=== PATIENT | female | born 1985 | race Hispanic/Latino ===

== ENCOUNTER 2024-06-15 16:44 | Emergency (ER) | payer BC ==
[~2024-06-15] VITALS: Ht 154.9 cm; Wt 97.5 kg
--- NOTE | 2024-06-15 16:55 | NUR ---
PENDING TEST RESULTS FOR CT EXAM.
[2024-06-15 17:25] LABS: BASOPHILS # (AUTO) 0.02 K/uL (0.00-0.20); BASOPHILS % (AUTO) 0.2 % (0.0-5.0); EOSINOPHILS # (AUTO) 0.02 K/uL (0.00-0.70); EOSINOPHILS % (AUTO) 0.2 % (0.0-8.0); HEMATOCRIT 32.9 % (36-48); IMMATURE GRANULOCYTE ABSOLUTE 0.05 K/uL (0-1); LYMPHOCYTES # (AUTO) 2.7 K/uL (1.0-4.8); LYMPHOCYTES % (AUTO) 24.9 % (21.0-51.0); MEAN CORPUSCULAR HEMOGLOBIN 25.2 pg (27.0-33.0); MEAN CORPUSCULAR HGB CONC 31.6 g/dL (32.0-36.0); MEAN CORPUSCULAR VOLUME 79.7 fL (79-99); MONOCYTES # (AUTO) 0.6 K/uL (0.1-1.0); MONOCYTES % (AUTO) 5.3 % (3.0-13.0); NEUTROPHILS # (AUTO) 7.4 K/uL (1.8-7.7); NEUTROPHILS % (AUTO) 68.9 % (40.0-77.0); PLATELET COUNT (AUTO) 269 K/uL (130-400); RED BLOOD CELL COUNT(AUTO) 4.13 MIL/uL (4.00-5.50); RED CELL DISTRIBUTION WIDTH 15.3 % (11.0-15.5); WHITE BLOOD COUNT (AUTO) 10.8 K/uL (4.8-10.8)
[2024-06-15] MEDS: ketOROlac 15MG/ML VIAL (15MG/ML) IV ONE (17:27)
[2024-06-15 17:33] LABS: CREATININE 0.8 mg/dL (0.5-1.0); POTASSIUM 3.5 mmol/L (3.5-5.1)
[2024-06-15 17:39] LABS: ALBUMIN 3.5 g/dL (3.5-5.0); BILIRUBIN,DIRECT 0.1 mg/dL (0.0-0.3); BILIRUBIN,TOTAL 0.3 mg/dL (0.2-1.0); TOTAL PROTEIN, SERUM 7.1 g/dL (6.0-8.3)
--- NOTE | 2024-06-15 17:52 | ERN ---
General Chief Complaint: Back Pain or Injury Stated Complaint: LEFT SIDE PAIN Time Seen by MD: 16:46 Time Seen by Midlevel: 16:46 Source: patient History of Present Illness Initial Comments Patient is a 39-year-old female with no significant past medical history presenting to the emergency department with sudden onset of left flank pain that radiates to the left groin. No other symptoms reported at this time. Allergies: Coded Allergies: No Known Allergies (Unverified Allergy, Unknown, 06/15/24) Home Meds Active Scripts Ketorolac Tromethamine (Ketorolac Tromethamine) 10 Mg Tablet, 1 TAB PO TID for pain for 5 Days, #15 TAB 0 Refills Prov:KARIN BACA 06/15/24 Tamsulosin HCl (Flomax) 0.4 Mg Cap.er.24h, 1 CAP PO DAILY for 7 Days, #7 CAP 0 Refills Prov:KARIN BACA 06/15/24 Past Medical History Past Medical History: Hypothyroid Past Surgical History: Tonsillectomy, Female( History) LMP: May 18, 2024 ROS Dictation CONSTITUTIONAL: Negative except for HPI HEAD/FACE: Negative except for HPI EENT: Negative except for HPI RESPIRATORY: Negative except for HPI GASTROINTESTINAL/ABDOMINAL: Negative except for HPI GENITOURINARY: Negative except for HPI MUSCULOSKELETAL: Negative except for HPI INTEGUMENTARY: Negative except for HPI NEUROLOGICAL/PSYCH: Negative except for HPI HEMATOLOGIC/LYMPHATIC: Negative except for HPI All Systems Negative, Except as noted above. 13 point review of systems assessed and all negative except for above. Physical Exam Physical Exam Dictation Vital Signs reviewed General Appearance: Alert, oriented x 3, no acute distress, well developed, nourished. Head and Face: non-traumatic. Eyes: PERRL, pink conjunctivas, eyelid no trauma, anterior chamber with arcus senilis. Ears: Pinnas intact and no signs of trauma or erythema ear canals clear and no discharge TM no erythema Nose: No discharge, no bleeding. Oropharynx: Mouth normal, tongue pink, pharynx clear,no erythema, tonsils no exudates, no abscesses noted, mucous membrane moist Neck: Supple, non-tender, no thyromegaly, no masses, no JVD, no bruits Breast:Deferred Chest:No tenderness, no crepitus, no paradoxical movement, no retractions Lungs:Clear, well-ventilated, symmetric, no rales, no wheezing, no rhonchi, no stridor, good breath sounds bilaterally Heart: Regular rate, regular rhythm, no murmur, no gallops Vascular: no peripheral edema, Abdomen: Soft, positive bowel sounds, nondistended, no guarding, Left CVA tenderness, no rebound, no masses no hepatomegaly, no splenomegaly, no Telles's sign, no hernias. Rectal: Deferred Genital: Deferred Neurological: Normal speech, motor function intact, sensory function intact Musculoskeletal: Neck nontender, full range of motion, back nontender, full range of motion, Extremities: nontender, full range of motion Skin: Color pink, dry, no turgor, no rash, no lacerations, no abrasions, no contusions. Lymphatic: Deferred Results Laboratory and Microbiology Lab and Micro Result Laboratory Tests Test 06/15/24 17:19 06/15/24 18:05 White Blood Count 10.8 K/uL (4.8-10.8) Red Blood Count 4.13 MIL/uL (4.00-5.50) Hemoglobin 10.4 g/dL (12.0-16.0) L Hematocrit 32.9 % (36-48) L Mean Corpuscular Volume 79.7 fL (79-99) Mean Corpuscular Hemoglobin 25.2 pg (27.0-33.0) L Mean Corpuscular Hemoglobin Concent 31.6 g/dL (32.0-36.0) L Red Cell Distribution Width 15.3 % (11.0-15.5) Platelet Count 269 K/uL (130-400) Mean Platelet Volume 9.9 fL (7.5-10.5) Immature Granulocyte % (Auto) 0.5 % (0-1) Neutrophils (%) (Auto) 68.9 % (40.0-77.0) Lymphocytes (%) (Auto) 24.9 % (21.0-51.0) Monocytes (%) (Auto) 5.3 % (3.0-13.0) Eosinophils (%) (Auto) 0.2 % (0.0-8.0) Basophils (%) (Auto) 0.2 % (0.0-5.0) Neutrophils # (Auto) 7.4 K/uL (1.8-7.7) Lymphocytes # (Auto) 2.7 K/uL (1.0-4.8) Monocytes # (Auto) 0.6 K/uL (0.1-1.0) Eosinophils # (Auto) 0.02 K/uL (0.00-0.70) Basophils # (Auto) 0.02 K/uL (0.00-0.20) Absolute Immature Granulocyte (auto 0.05 K/uL (0-1) Nucleated Red Blood Cells 0.0 % (0.0-0.19) Sodium Level 137 mmol/L (136-145) Potassium Level 3.5 mmol/L (3.5-5.1) Chloride Level 103 mmol/L (101-111) Carbon Dioxide Level 28 mmol/L (21-32) Blood Urea Nitrogen 11 mg/dL (7-18) Creatinine 0.8 mg/dL (0.5-1.0) Glomerular Filtration Rate Calc 97 mL/min (>90) Random Glucose 110 mg/dL (70-105) H Total Calcium 8.3 mg/dL (8.5-10.1) L Total Bilirubin 0.3 mg/dL (0.2-1.0) Direct Bilirubin 0.1 mg/dL (0.0-0.3) Aspartate Amino Transf (AST/SGOT) 11 U/L (10-37) Alanine Aminotransferase (ALT/SGPT) 21 U/L (12-78) Alkaline Phosphatase 92 U/L (50-136) Total Protein 7.1 g/dL (6.0-8.3) Albumin 3.5 g/dL (3.5-5.0) Lipase 19 U/L (16-77) Serum Test, Qualitative NEGATIVE (NEGATIVE) Urine Color LIGHT-YELLOW (YELLOW) Urine Appearance CLEAR (CLEAR) Urine pH 5.5 (5.0-8.0) Urine Specific [place] 1.011 (1.001-1.031) Urine Protein NEGATIVE mg/dL (NEGATIVE) Urine Glucose (UA) NEGATIVE mg/dL (NEGATIVE) Urine Ketones NEGATIVE mg/dL (NEGATIVE) Urine Occult Blood MODERATE (NEGATIVE) H Urine Nitrate NEGATIVE (NEGATIVE) Urine Bilirubin NEGATIVE mg/dL (NEGATIVE) Urine Urobilinogen 0.2 mg/dL (0.2-1.0) Urine Leukocyte Esterase NEGATIVE David/uL Urine RBC 11-25 /HPF (0-1) H Urine WBC 0-1 /HPF (0-1) Urine Squamous Epithelial Cells FEW /HPF (0-2) Urine Bacteria RARE /HPF (None Seen) Labs Reviewed?: Yes MDM MDM: Differential diagnosis: Your stone, pyelonephritis, urinary tract infection There are no social concerns with this patient. Prescription drug management Prescriptions will include: Flomax and Toradol Medical management and examination interpretation discussions were had by me with other qualified healthcare professionals as indicated for the patient's care. ED Course Orders Procedure Category Date Status Time Cbc With Differential LAB 06/15/24 Complete 16:50 Basic Metabolic Panel LAB 06/15/24 Complete 16:50 Hepatic Function Panel LAB 06/15/24 Complete 16:50 Lipase LAB 06/15/24 Complete 16:50 Testing, LAB 06/15/24 Complete Serum Hcg 16:50 Urinalysis Profile LAB 06/15/24 Complete 16:50 Ct Abdomen/Pelvis W/O CT 06/15/24 Resulted Contrast 16:50 Ketorolac PHA 06/15/24 Complete Tromethamine 15mg/Ml 17:00 Tamsulosin Hcl PHA 06/15/24 Complete (Flomax) 19:00 Current Medications Medications (Trade) Dose Ordered Sig/Vika Route PRN Reason Start Time Stop Time Status Last Admin Dose Admin Ketorolac Tromethamine (toRADol) 15 mg ONCE ONCE IV 06/15/24 17:00 06/15/24 17:03 DC 06/15/24 17:27 Tamsulosin HCl (FloMAX) 0.4 mg ONCE ONCE PO 06/15/24 19:00 06/15/24 19:01 DC Vital Signs Date Time Temp Pulse Resp B/P (MAP) Pulse Ox O2 Delivery O2 Flow Rate FiO2 06/15/24 18:19 97.5 74 14 131/76 99 Room Air* 0 21 06/15/24 16:50 97.5 85 18 143/99 99 Room Air 0 [place] [id number] [address] IMAGING REPORT Signed PATIENT: RACQUEL OTOOLE MR#: [id number] : 1985 SEX: F AGE: 39 LOCATION: [facility] ORDER [id number] STATUS: REG ER REPORT#: [id number] SERVICE 165 REASON: left flank pain r/o ureter stone ORDERING PHYSICIAN: KARIN BACA PROCEDURE: ABD PEL WO - CT ABDOMEN/PELVIS W/O CONTRAST CT ABDOMEN/PELVIS W/O CONTRAST HISTORY: Left flank pain COMPARISON: None TECHNIQUE: Multiple sequential axial images of the abdomen and pelvis were obtained from the dome of the diaphragm through symphysis pubis. Patient was not given contrast through intravenous route. Oral contrast was not given. FINDINGS: No pleural effusion is seen bilaterally. There is no evidence of parenchymal disease or pulmonary nodule of the visualized lower lungs. Degenerative changes of the thoracolumbar spine are present. The heart is not enlarged. Liver is enlarged with fatty changes measuring 18 cm. The liver, spleen, adrenal glands and pancreas are unremarkable. No hydronephrosis is seen on the right. There is mild left hydronephrosis and left hydroureter with 2 mm renal stone suspected in the left UV junction. No evidence of renal stone is seen. Fecal material is seen in the colon. There are normal size retroperitoneal and mesenteric lymph nodes. No ascites is seen. Atherosclerotic changes are present. Pelvic sidewalls are symmetric bilaterally. Bladder is well distended without wall thickening. IMPRESSION: 1. There is mild left hydronephrosis and left hydroureter with 2 mm renal stone suspected in the left UV junction. CT was performed with one or more following dose reduction techniques: automated exposure control, adjustment of the mA and kv according to patient's size, or use of a iterative reconstruction technique. DICTATED BY: KANDICE LUNA MD DATE: 06/15/241758 ELECTRONICALLY SIGNED BY: KANDICE LUNA MD DATE: 06/15/241809 DX & DISP Disposition: Discharge Departure Impression: Primary Impression: Left ureteral stone Condition: Stable Scripts Ketorolac Tromethamine (Ketorolac Tromethamine) 10 Mg Tablet 1 TAB PO TID for pain for 5 Days, #15 TAB 0 Refills Prov: KARIN BACA 06/15/24 Tamsulosin HCl (Flomax) 0.4 Mg Cap.er.24h 1 CAP PO DAILY for 7 Days, #7 CAP 0 Refills Prov: KARIN BACA 06/15/24 Additional Instructions: Your blood work today is unremarkable. Your urinalysis does not show any evidence of infection. No need for antibiotics at this time. Your CT scan of the abdomen/pelvis reveals a 2 mm stone on the left side. You were started on Flomax which should help pass your kidney stone. I have given you a prescription for ketorolac which should help with your pain and Flomax. Follow up with Urology outpatient. Return to the ER for any new or worsening symptoms Referrals: SELF,REFERRAL (PCP) Time of Disposition: 18:52 I have reviewed the case, and I agree with, Diagnosis and Plan I performed the substantive portion of the visit. I have reviewed and personally made and approve the management plan that is documented in the note by myself or the SYDNIE. I acknowledge for responsibility for the patient's management plan. KARIN BACA Jun 15, 2024 17:52
--- NOTE | 2024-06-15 18:10 | HMCIMG ---
CT ABDOMEN/PELVIS W/O CONTRAST HISTORY: Left flank pain COMPARISON: None TECHNIQUE: Multiple sequential axial images of the abdomen and pelvis were obtained from the dome of the diaphragm through symphysis pubis. Patient was not given contrast through intravenous route. Oral contrast was not given. FINDINGS: No pleural effusion is seen bilaterally. There is no evidence of parenchymal disease or pulmonary nodule of the visualized lower lungs. Degenerative changes of the thoracolumbar spine are present. The heart is not enlarged. Liver is enlarged with fatty changes measuring 18 cm. The liver, spleen, adrenal glands and pancreas are unremarkable. No hydronephrosis is seen on the right. There is mild left hydronephrosis and left hydroureter with 2 mm renal stone suspected in the left UV junction. No evidence of renal stone is seen. Fecal material is seen in the colon. There are normal size retroperitoneal and mesenteric lymph nodes. No ascites is seen. Atherosclerotic changes are present. Pelvic sidewalls are symmetric bilaterally. Bladder is well distended without wall thickening. IMPRESSION: 1. There is mild left hydronephrosis and left hydroureter with 2 mm renal stone suspected in the left UV junction. CT was performed with one or more following dose reduction techniques: automated exposure control, adjustment of the mA and kv according to patient's size, or use of a iterative reconstruction technique.
[2024-06-15 18:12] LABS: ADD UA MICROSCOPIC YES; APPEARANCE,URINE CLEAR (CLEAR); BILIRUBIN,URINE NEGATIVE (NEGATIVE); COLOR,URINE LIGHT-YELLOW (YELLOW); GLUCOSE, URINE (UA) NEGATIVE (NEGATIVE); KETONES,URINE NEGATIVE (NEGATIVE); LEUKOCYTE ESTERASE ,URINE NEGATIVE Leu/uL (NEGATIVE); NITRATE,URINE NEGATIVE (NEGATIVE); OCCULT BLOOD,URINE MODERATE (NEGATIVE); PH,URINE 5.5 (5.0-8.0); PROTEIN,URINE NEGATIVE (NEGATIVE); UROBILINOGEN,URINE 0.2 mg/dL (0.2-1.0)
[2024-06-15 18:14] LABS: BACTERIA,URINE RARE /HPF (None Seen); MUCUS,URINE RARE LPF (None Seen); SQUAMOUS EPITHELIAL CELL,UR FEW /HPF (0-2); WBC,URINE 0-1 /HPF (0-1)
[2024-06-15 18:19] VITALS: BP 131/76; PULSE 74; RESP 14; TEMP 97.5; O2SAT 99
[2024-06-15] MEDS ORDERED: TAMS-1 PO (18:54)
[2024-06-15] MEDS ORDERED: KETO10TA2 PO (18:54)
[2024-06-15] MEDS: tamSULOsin HCL 0.4 MG CAP.ER.24H PO ONE (19:03)
== END 2024-06-15 19:06 | disposition home or self-care (01) ==
LOC: EDH 16:44
DX: N13.2 Hydronephrosis with renal and ureteral calculous obstruction (principal); E03.9 Hypothyroidism, unspecified; Z90.89 Acquired absence of other organs
CPT/HCPCS: 99284; 74176; 96374; 80076; 80048; 84703; 83690; 85025; 81001; 36415; J1885